=== PATIENT | female | born 1945 ===

== ENCOUNTER 2017-05-04 08:26 | Emergency (ER) | payer OTHER ==
[2017-05-04 08:26] VITALS: PULSE 80; BMI 20.2
[2017-05-04] MEDS: Albuterol-Ipratrop 3 mg / 0.5 (3 ml) UD IH SCH ×3 (09:24→09:52)
--- NOTE | 2017-05-04 09:36 | ED PDOC ---
Arrival/HPI - General Chief Complaint: Shortness Of Breath Time Seen by Provider: 05/04/17 09:02 Historian: Patient - History of Present Illness Narrative History of Present Illness (Text): 05/04/17 09:28 A 72 year old female, whose past medical history includes PA, Tuberculosis, anemia GI bleed, proximal A- Fib, hypertension COPD, diabetes, presents to the emergency department complaining of shortness of breath, cough, and wheezing s/ p an asthma attack 1-2 days ago. The patient notes that her symptoms have worsened since the time of the asthma attack. The patient's daughter, at bedside , notes that the patient was coughing with sputum. The patient notes that she has been using her nebulizer treatments for the past 4 days, every 4 hours. The patient denies fevers, chills, headache, dizziness, chest pain, dyspnea on exertion, abdominal pain, nausea, vomiting, diarrhea, back pain, neck pain, urinary/bowel changes, or any other complaint. PMD: Dr. Shantel Grover Time/Duration: Other (1-2 Days) Symptom Onset: Sudden Symptom Course: Unchanged Activities at Onset: Rest, Light Context: Home Past Medical History - Provider Review Nursing Documentation Reviewed: Yes - Infectious Disease Hx of Infectious Diseases: None - Cardiac Hx Cardiac Disorders: Yes Hx Hypertension: Yes - Pulmonary Hx Chronic Obstructive Pulmonary Disease (COPD): Yes - HEENT Hx HEENT Disorder: No - Endocrine/Metabolic Hx Diabetes Mellitus Type 1: Yes - Integumentary Hx Dermatological Disorder: No - Musculoskeletal/Rheumatological Hx Musculoskeletal Disorders: No Hx Falls: No - Genitourinary/Gynecological Hx Genitourinary Disorders: Yes Other/Comment: c/s x 1 - Psychiatric Hx Psychophysiologic Disorder: Yes Hx Anxiety: No Hx Bipolar Disorder: No Hx Depression: No Hx Emotional Abuse: No Hx Hallucinations: No Hx Panic Disorder: No Hx Post Traumatic Stress Disorder: No Hx Psychosis: No Hx Physical Abuse: No Hx Schizophrenia: No Hx Sexual Abuse: No Hx Substance Use: No - Surgical History Other/Comment: BILATERAL EYE SURGERY CATARACTS ,C/S X 1 - Anesthesia Hx Anesthesia Reactions: No Hx Malignant Hyperthermia: No Family/Social History - Physician Review Nursing Documentation Reviewed: Yes Family/Social History: No Known Family HX Smoking Status: Never Smoked Hx Alcohol Use: No Hx Substance Use: No Allergies/Home Meds Allergies/Adverse Reactions: Allergies aspirin Allergy (Verified 05/04/17 08:51) ANAPHYLAXIS Home Medications: Home Meds Medication Instructions Recorded Confirmed Albuterol HFA [Ventolin HFA 90 1 puff IH PRN PRN 06/06/15 06/06/15 mcg/actuation (8 g)] Budesonide/Formoterol Fumarate 10.2 gm IH BID 06/06/15 06/06/15 [Symbicort 160-4.5 Mcg Inhaler] Metformin HCl [Metformin HCl ER] 1 tab PO BID 06/06/15 06/06/15 Montelukast [Singulair] 10 mg PO DAILY 06/06/15 06/06/15 Tiotropium [Spiriva] 18 mcg IH DAILY 06/06/15 06/06/15 Review of Systems - Physician Review All systems were reviewed & negative as marked: Yes - Review of Systems Constitutional: absent: Fevers, Night Sweats Respiratory: SOB, Cough, Wheezing Cardiovascular: absent: Chest Pain, JOHNSON Gastrointestinal: absent: Abdominal Pain, Stool Changes, Diarrhea, Nausea, Vomiting Genitourinary Female: absent: Urine Output Changes Musculoskeletal: absent: Back Pain, Neck Pain Neurological: absent: Headache, Dizziness Physical Exam Vital Signs Reviewed: Yes Vital Signs Temp Pulse Resp BP Pulse Ox 05/04/17 12:53 98.2 F 82 18 122/61 100 05/04/17 09:25 17 99 05/04/17 08:49 98.8 F 79 17 127/84 97 Temperature: Afebrile Blood Pressure: Normal Pulse: Regular Respiratory Rate: Normal Appearance: Positive for: Well-Appearing, Non-Toxic, Comfortable Pain Distress: None Mental Status: Positive for: Alert and Oriented X 3 - Systems Exam Head: Present: Atraumatic, Normocephalic Pupils: Present: PERRL Extroacular Muscles: Present: EOMI Conjunctiva: Present: Normal Mouth: Present: Moist Mucous Membranes Neck: Present: Normal Range of Motion Respiratory/Chest: Present: Wheezes. No: Retracting Cardiovascular: Present: Regular Rate and Rhythm, Normal S1, S2. No: Murmurs Abdomen: Present: Normal Bowel Sounds. No: Tenderness, Distention, Peritoneal Signs Back: Present: Normal Inspection Upper Extremity: Present: Normal Inspection. No: Cyanosis, Edema Lower Extremity: Present: Normal Inspection. No: Edema, Swelling Neurological: Present: GCS=15, CN II-XII Intact, Speech Normal Skin: Present: Warm, Dry, Normal Color. No: Rashes Psychiatric: Present: Alert, Oriented x 3, Normal Insight, Normal Concentration Medical Decision Making ED Course and Treatment: 05/04/17 09:37 Impression: A 72 year old female presents to the emergency department complaining of shortness of breath, cough and wheezing. Differential Diagnosis included but are not limited to: Asthma exacerbation r/ o pneumonia Plan: -- EKG -- Chest X-ray -- Labs -- Duoneb and SOLU-Medrol -- Reassess and disposition Progress Notes: EKG: Ordered, reviewed, and independently interpreted the EKG. Rate : 74 BPM Rhythm : NSR Interpretation : Inferior lateral T- wave inversion. Comparison : No change from 06/11/15 05/04/17 12:35: Patient states that she is feeling much better. On re-evaluation , the patient still has wheezes. Will administer additional treatment. Chest X-ray read and interpreted by me shows right apical scarring. No change from previous Chest X-ray. 05/04/17 12:51: Patient reevaluated. Lungs are clear. No retractions. The patient is able to ambulate without feeling short of breath. The patient will be discharged home with primary care follow- up. - Lab Interpretations Lab Results: 05/04/17 09:20 05/04/17 09:20 Lab Results 05/04/17 09:20: Influenza Typ A,B (EIA) Negative for flu a/b 05/04/17 09:20: Sodium 132, Potassium 3.9, Chloride 94 L, Carbon Dioxide 26, Anion Gap 17, BUN 11, Creatinine 0.7, Est GFR ( Amer) > 60, Est GFR (Non- Af Amer) > 60, Random Glucose 172 H, Calcium 9.3 05/04/17 09:20: WBC 6.0, RBC 4.05, Hgb 11.2 L, Hct 33.6 L, MCV 83.0, MCH 27.7, MCHC 33.3, RDW 12.9, Plt Count 160, MPV 9.8, Gran % 54.0, Lymph % (Auto) 25.9, [place] % (Auto) 19.1 H, Eos % (Auto) 0.8 L, Baso % (Auto) 0.2, Gran # 3.26, Lymph # (Auto) 1.6, [place] # (Auto) 1.2 H, Eos # (Auto) 0.1, Baso # (Auto) 0.01 I have reviewed the lab results: Yes - RAD Interpretation Radiology Orders: 05/04/17 09:10 CHEST TWO VIEWS (PA/LAT) [RAD] Stat - EKG Interpretation Interpreted by ED Physician: Yes Type: 12 lead EKG - Medication Orders Current Medication Orders: Discontinued Medications Albuterol Sulfate (Albuterol 0.083% Inhal Frida (2.5 Mg/3 Ml) Ud) 2.5 mg INH STAT STA Stop: 05/04/17 11:07 Last Admin: 05/04/17 11:12 Dose: 2.5 mg Albuterol/Ipratropium (Duoneb 3 Mg/0.5 Mg (3 Ml) Ud) 3 ml IH Q15M ROCKY Stop: 05/04/17 09:46 Last Admin: 05/04/17 09:52 Dose: 3 ml Methylprednisolone (Solu-Medrol) 125 mg IVP STAT STA Stop: 05/04/17 09:11 Last Admin: 05/04/17 09:24 Dose: 125 mg IVP Administration Document 05/04/17 09:24 EW (Rec: 05/04/17 09:24 EWO [id number]) Charges for Administration # of IVP Administrations 1 - Scribe Statement The provider has reviewed the documentation as recorded by the Matibe Mckenna Giordano Provider Scribe Attestation: All medical record entries made by the Scribe were at my direction and personally dictated by me. I have reviewed the chart and agree that the record accurately reflects my personal performance of the history, physical exam, medical decision making, and the department course for this patient. I have also personally directed, reviewed, and agree with the discharge instructions and disposition. Disposition/Present on Arrival - Present on Arrival Any Indicators Present on Arrival: No History of DVT/PE: No History of Uncontrolled Diabetes: No Urinary Catheter: No History of Decub. Ulcer: No History Surgical Site Infection Following: None - Disposition Have Diagnosis and Disposition been Completed?: Yes Diagnosis: Asthma Disposition: HOME/ ROUTINE Disposition Time: 13:09 Patient Plan: Discharge Condition: IMPROVED Discharge Instructions (ExitCare): Asthma (ED) Additional Instructions: Ms Holguin, thank you for letting us take care of you today. Your provider was Dr. Barragan. You were treated for Asthma Exacerbation. The emergency medical care you received today was directed at your acute symptoms. If you were prescribed any medication, please fill it and take as directed. It may take several days for your symptoms to resolve. Return to the Emergency Department if your symptoms worsen, do not improve, or if you have any other problems. Please contact your doctor or call one of the physicians/clinics you have been referred to that are listed on the Patient Visit Information form that is included in your discharge packet. Bring any paperwork you were given at discharge with you along with any medications you are taking to your follow up visit. Our treatment cannot replace ongoing medical care by a primary care provider (PCP) outside of the emergency department. Thank you for allowing the [facility] team to be part of your care today. If you had an X-Ray or CT scan: A Radiologist will review the ED reading if any change in treatment is needed we will contact you. If you had a blood, urine, or wound culture: It will take several days for the results, if any change in treatment is needed we will contact you. If you had an STI test: It will take 48 hours for the results. Please call after 1 week if you have not heard back. Prescriptions: Albuterol 0.083% [Albuterol 0.083% Inhal Frida (2.5 mg/3 ml) UD] 2.5 mg IH PRN PRN #1 neb PRN Reason: Shortness Of Breath Albuterol HFA [Ventolin HFA 90 mcg/actuation (8 g)] 2 puff IH Q4 #1 puff predniSONE [predniSONE Tab] 40 mg PO DAILY #8 tab Referrals: [facility] Carolyn Req, [Non-Staff] - Follow up with primary Forms: [employer] (Uzbek)
[2017-05-04 09:53] LABS: BASO # 0.01 K/mm3 (0.0-2.0); BASO % 0.2 % (0.0-3.0); EOS # 0.1 (0.0-0.7); EOS % 0.8 % (1.5-5.0); GRAN # 3.26 (1.4-6.5); HEMOGLOBIN 11.2 g/dL (12.0-16.0); LYMPH # 1.6 (1.2-3.4); LYMPH % 25.9 % (22.0-35.0); MEAN CORPUSCULAR HEMOGLOBIN 27.7 pg (25.0-35.0); MEAN CORPUSCULAR HGB CONC 33.3 g/dl (31.0-37.0); MEAN PLATELET VOLUME 9.8 fl (7.0-11.0); MONO # 1.2 (0.1-0.6); MONO % 19.1 % (1.0-6.0); RBC 4.05 10^6/uL (3.5-6.1); RED CELL DISTRIBUTION WIDTH 12.9 % (11.5-14.5)
[2017-05-04 09:59] LABS: BLOOD UREA NITROGEN 11 mg/dL (7-21); CALCIUM 9.3 mg/dL (8.4-10.5); GFR AFRICAN-AMERICAN > 60; GFR NON-AFRICAN AMERICAN > 60
[2017-05-04] MEDS ORDERED: Albuterol 0.083% Inhal Sol (2.5 mg/3 mL) UD INH STA (11:06)
--- NOTE | 2017-05-04 12:09 | RAD ---
HISTORY: Cough, pneumonia suspected COMPARISON: 06/11/2015 TECHNIQUE: Chest PA and lateral FINDINGS: LUNGS: Fibronodular changes, scarring in the apices. Hilar retraction, findings likely reflective of granulomatous disease. PLEURA: No significant pleural effusion identified. No pneumothorax apparent. CARDIOVASCULAR: No radiographic findings to suggest acute or significant cardiovascular disease. OSSEOUS STRUCTURES: No significant abnormalities. VISUALIZED UPPER ABDOMEN: Normal. OTHER FINDINGS: None. IMPRESSION: No active disease. No significant interval change compared to the prior examination(s). Concordant results with the preliminary interpretation rendered by the emergency department physician procedure.
[2017-05-04 13:00] VITALS: BP 122/61; PULSE 82; RESP 18; TEMP 98.2; O2SAT 100
--- NOTE | 2017-05-04 21:04 | CARD ---
APPROVED REPORT EKG Measurement Heart [id number] <Conclusion> Normal sinus rhythm Cannot rule out Inferior infarct, age undetermined Abnormal ECG
== END 2017-05-04 13:09 | disposition home or self-care (01) ==
LOC: ED 08:26
DX: J45.909 Unspecified asthma, uncomplicated (principal); I10 Essential (primary) hypertension
CPT/HCPCS: 71046; 80048; 85025; 87804; 93005; 96374; 99284; J2930

== ENCOUNTER 2017-05-08 09:57 | Inpatient (IN) | payer MEDICAID, OTHER ==
--- NOTE | 2017-05-08 10:33 | ED PDOC ---
Arrival/HPI - General Time Seen by Provider: 05/08/17 10:15 Historian: Patient, Family - History of Present Illness Narrative History of Present Illness (Text): 05/08/17 10:25 Blanquita Holguin is a 72 year old female, whose past medical history includes hypertension, COPD, diabetes, and cardiac stents, who presents to the emergency department accompanied by daughter, with complaints of shortness of breath since this morning. Patient reports she was last seen here on 05/04/17 for shortness of breath but has not improved. Daughter reports patient seems more fatigue than usual. Patient denies chest pain, headache, nausea, vomiting, cough , or other complaints. Time/Duration: 4-6 hours Symptom Onset: Sudden Symptom Course: Unchanged Context: Home Past Medical History - Provider Review Nursing Documentation Reviewed: Yes - Infectious Disease Hx of Infectious Diseases: None - Cardiac Hx Cardiac Disorders: Yes Hx Hypertension: Yes - Pulmonary Hx Chronic Obstructive Pulmonary Disease (COPD): Yes - HEENT Hx HEENT Disorder: No - Endocrine/Metabolic Hx Diabetes Mellitus Type 1: Yes - Integumentary Hx Dermatological Disorder: No - Musculoskeletal/Rheumatological Hx Musculoskeletal Disorders: No Hx Falls: No - Genitourinary/Gynecological Hx Genitourinary Disorders: Yes Other/Comment: c/s x 1 - Psychiatric Hx Psychophysiologic Disorder: Yes Hx Anxiety: No Hx Bipolar Disorder: No Hx Depression: No Hx Emotional Abuse: No Hx Hallucinations: No Hx Panic Disorder: No Hx Post Traumatic Stress Disorder: No Hx Psychosis: No Hx Physical Abuse: No Hx Schizophrenia: No Hx Sexual Abuse: No Hx Substance Use: No - Surgical History Other/Comment: BILATERAL EYE SURGERY CATARACTS ,C/S X 1 - Anesthesia Hx Anesthesia Reactions: No Hx Malignant Hyperthermia: No Family/Social History - Physician Review Nursing Documentation Reviewed: Yes Family/Social History: Unknown Family HX Smoking Status: Never Smoked Hx Alcohol Use: No Hx Substance Use: No Allergies/Home Meds Allergies/Adverse Reactions: Allergies aspirin Allergy (Verified 05/08/17 10:35) ANAPHYLAXIS Home Medications: Home Meds Medication Instructions Recorded Confirmed Unobtainable 05/08/17 05/08/17 Review of Systems - Review of Systems Constitutional: Fatigue. absent: Fevers Respiratory: SOB Cardiovascular: JOHNSON. absent: Chest Pain, Edema, Calf Pain Gastrointestinal: absent: Abdominal Pain, Diarrhea Genitourinary Female: absent: Dysuria, Frequency Musculoskeletal: absent: Back Pain Skin: absent: Rash Neurological: absent: Headache Endocrine: absent: Diaphoresis Hemo/Lymphatic: absent: Adenopathy Physical Exam - Physical Exam Narrative Physical Exam (Text): 05/08/17 Head: Atraumatic. Normocephalic. Eyes: PERRL. EOMI. Conjunctivae are not pale. ENT: Mucous membranes are moist and intact. Oropharynx is clear and symmetric. Neck: Supple. Full ROM. No JVD. No lymphadenopathy. Cardiovascular: Regular rate. Regular rhythm. No murmurs, rubs, or gallops. Distal pulses are 2+ and symmetric. Pulmonary/Chest: (+) tachypneic with bilateral wheezing, no accessory muscle usage Abdominal: Soft and non-distended. There is no tenderness. No rebound, guarding, or rigidity. No organomegaly. Good bowel sounds. Back: No CVA tenderness. Extremities: No edema. No cyanosis. No clubbing. Full range of motion in all extremities. No calf tenderness. Skin: Skin is warm and dry. No petechiae. No purpura. Neurological: Alert, awake, and oriented to person, place, time, and situation. Normal speech. Motor and sensory exam intact. Psychiatric: Good eye contact. Normal interaction, affect, and behavior. 05/08/17 16:13 Vital Signs Reviewed: Yes Vital Signs Temp Pulse Resp BP Pulse Ox 05/08/17 14:09 80 18 135/62 96 05/08/17 14:06 18 95 05/08/17 12:00 85 18 126/60 95 05/08/17 10:35 99.2 F 85 20 147/76 95 05/08/17 10:28 99.2 F 92 H 18 153/71 H 95 Temperature: Afebrile Respiratory Rate: Tachypneic Appearance: Positive for: Well-Appearing, Non-Toxic, Comfortable Pain Distress: None Mental Status: Positive for: Alert and Oriented X 3 Medical Decision Making ED Course and Treatment: 05/08/17 Impression: 72 year old who is tachypneic with bilateral wheezing complaining of shortness of breath since this morning. Differential Diagnosis included but are not limited to: COPD vs. CHF vs. PNA vs. Influenza vs. anemia Plan: -- EKG -- Chest X-ray -- Labs -- Reassess and disposition Prior Visits: Notes and results from previous visits were reviewed. Patient was last seen in the emergency department on 05/04/17 Progress Notes: Initial saturations are 96% on room air. She is mildy tachypneic with bilateral wheezing. No chest pain or leg pain or swelling. She was recently evaluated 05/04/17 and placed on steroids. She has prior cardiac history as per family, although initial EKG and troponin unremarkable. 05/08/17 11:00 Chest X-ray: Creator : Tyree Duarte MD COMPARISON:Chest radiographs 05/04/2017. FINDINGS: LUNGS:Trace patchy density is seen at the right infrahilar space suspicious for interval infiltrate or atelectasis. No interval left-sided infiltrate appreciable. Bilateral pulmonary volume loss from biapical gross pulmonary fibrotic changes again evident. PLEURA:Gross right apical pleural thickening in evident, minimal at the left. CARDIOVASCULAR:Normal. OSSEOUS STRUCTURES:No significant abnormalities. VISUALIZED UPPER ABDOMEN:Normal. OTHER FINDINGS:None. IMPRESSION: Trace right infrahilar patchy atelectasis or infiltrate noted in the interval with none on the left. Exam otherwise stable including gross post granulomatous changes in the bilateral apices. After three nebulizers patient reassessed and found to have persistent wheezing with minimal improvement. As lactate elevated with elevated WBC, will call code sepsis as patient with cxr consistent with possible pneumonia. Currently not tachycardic or hypotensive. 05/08/17 14:00 Code Sepsis called. IV antibitoics initiated for pulmonary infection, abnormal cxr. Case d/w hospitalist accepts admission to telemetry as multiple nebulizers required. - Lab Interpretations Lab Results: 05/08/17 10:50 05/08/17 10:50 Lab Results 05/08/17 14:00: Phosphorus 2.7, Magnesium 1.7 05/08/17 10:50: Sodium 136, Chloride 94 L, Potassium 4.2, Carbon Dioxide 30, Anion Gap 16, BUN 19, Creatinine 0.7, Est GFR ( Amer) > 60, Est GFR (Non- Af Amer) > 60, Random Glucose 220 H, Calcium 9.4, Total Bilirubin 0.4, AST 30, ALT 28, Alkaline Phosphatase 65, Lactate Dehydrogenase 408, Total Creatine Kinase 27 L, Troponin I 0.01 D, NT-Pro-B Natriuret Pep 967 H, Total Protein 7.2 , Albumin 3.8, Globulin 3.4, Albumin/Globulin Ratio 1.1 05/08/17 10:50: PT 11.5, INR 1.00, APTT 28.7 05/08/17 10:50: Influenza Typ A,B (EIA) Negative for flu a/b 05/08/17 10:50: WBC 17.8 H D, RBC 4.35, Hgb 12.0, Hct 36.2, MCV 83.2, MCH 27.6, MCHC 33.1, RDW 12.8, Plt Count 178, MPV 9.8, Gran % 85.8 H, Lymph % (Auto) 3.9 L , [place] % (Auto) 10.2 H, Eos % (Auto) 0.0 L, Baso % (Auto) 0.1, Gran # 15.26 H, Lymph # (Auto) 0.7 L, [place] # (Auto) 1.8 H, Eos # (Auto) 0.0, Baso # (Auto) 0.01 , Neutrophils % (Manual) 92 H, Band Neutrophils % 1, Lymphocytes % (Manual) 4 L , Monocytes % (Manual) 3 05/08/17 10:45: pCO2 42, pO2 64.0 L, HCO3 31.3 H, ABG pH 7.48 H, ABG Total CO2 32.6 H, ABG O2 Saturation 95.6, ABG Base Excess 7.0 H, ABG Potassium 4.0, Sodium 134.0, Chloride 100.0, Glucose 239 H, Lactate 2.8 H, FiO2 21.0, Arterial Blood Potassium 4.0 I have reviewed the lab results: Yes - RAD Interpretation Radiology Orders: 05/08/17 10:36 CHEST PORTABLE [RAD] Stat Dba Manager: Radiologist - EKG Interpretation EKG Interpretation (Text): EKG at 10:08 normal sinus rhythm with first degree av block, t wave abnormality Interpreted by ED Physician: Yes Type: 12 lead EKG - Medication Orders Current Medication Orders: Albuterol/Ipratropium (Duoneb 3 Mg/0.5 Mg (3 Ml) Ud) 3 ml IH [id number] ROCKY Last Admin: 05/08/17 16:00 Dose: Albuterol/Ipratropium (Duoneb 3 Mg/0.5 Mg (3 Ml) Ud) 3 ml IH Q2H PRN PRN Reason: Shortness of Breath Arformoterol Tartrate (Brovana) 15 mcg IH [id number] [facility] Atorvastatin Calcium (Lipitor) 20 mg PO DIN [facility] Budesonide (Pulmicort Respules) 0.5 mg IH [id number] [facility] Clopidogrel Bisulfate (Plavix) 75 mg PO DAILY [facility] Famotidine (Pepcid) 20 mg PO 1000,2200 [facility] Ceftriaxone Sodium (Rocephin 1 Gram Ivpb) 1 gm in 100 mls @ 100 mls/hr IVPB DAILY ROCKY PRN Reason: Protocol Azithromycin (Zithromax 500mg In Ns) 500 mg in 250 mls @ 167 mls/hr IVPB DAILY ROCKY PRN Reason: Protocol Insulin Human Regular (Humulin R Med) 0 units SC ACHS ROCKY PRN Reason: Protocol Lisinopril (Zestril) 2.5 mg PO DAILY [facility] Methylprednisolone (Solu-Medrol) 40 mg IVP Q8H [facility] Last Admin: 05/08/17 15:57 Dose: Discontinued Medications Albuterol/Ipratropium (Duoneb 3 Mg/0.5 Mg (3 Ml) Ud) 3 ml IH Q15M ROCKY Stop: 05/08/17 11:16 Last Admin: 05/08/17 12:23 Dose: 3 ml Albuterol/Ipratropium (Duoneb 3 Mg/0.5 Mg (3 Ml) Ud) 3 ml IH STAT STA Stop: 05/08/17 15:54 Last Admin: 05/08/17 15:59 Dose: 3 ml Ceftriaxone Sodium (Rocephin 1 Gram Ivpb) 1 gm in 100 mls @ 200 mls/hr IVPB ONCE STA PRN Reason: Protocol Stop: 05/08/17 12:26 Last Admin: 05/08/17 12:23 Dose: 200 mls/hr eMAR Start Stop Document 05/08/17 12:23 [facility] (Rec: 05/08/17 12:23 [facility] [id number]) Intravenous Solution Start Date 05/08/17 Start Time 12:23 End Date 05/08/17 End time 13:00 Total Infusion Time 37 Azithromycin (Zithromax 500mg In Ns) 500 mg in 250 mls @ 166.667 mls/hr IVPB STAT STA PRN Reason: Protocol Stop: 05/08/17 13:26 Last Admin: 05/08/17 14:17 Dose: 166.667 mls/hr eMAR Start Stop Document 05/08/17 14:17 [facility] (Rec: 05/08/17 14:18 [facility] [id number]) Intravenous Solution Start Date 05/08/17 Start Time 14:17 End Date 05/08/17 End time 15:50 Total Infusion Time 93 Lactated Ringer's 1,360 ml/ IV (SUPPLIES) 1,360 mls @ 2,721.54 mls/hr IV ONCE ONE PRN Reason: 60 ML/KG/HR Stop: 05/08/17 14:07 Last Admin: 05/08/17 14:18 Dose: 2,721.54 mls/hr eMAR Start Stop Document 05/08/17 14:18 [facility] (Rec: 05/08/17 14:18 [facility] [id number]) Intravenous Solution Start Date 05/08/17 Start Time 14:18 End Date 05/08/17 End time 14:50 Total Infusion Time 32 Methylprednisolone (Solu-Medrol) 125 mg IVP STAT STA Stop: 05/08/17 10:38 Last Admin: 05/08/17 11:14 Dose: 125 mg IVP Administration Document 05/08/17 11:14 [facility] (Rec: 05/08/17 11:14 [facility] [id number]) Charges for Administration # of IVP Administrations 1 - Scribe Statement The provider has reviewed the documentation as recorded by the Shirley Franklin Provider Scribe Attestation: All medical record entries made by the Scribmiles were at my direction and personally dictated by me. I have reviewed the chart and agree that the record accurately reflects my personal performance of the history, physical exam, medical decision making, and the department course for this patient. I have also personally directed, reviewed, and agree with the discharge instructions and disposition. Disposition/Present on Arrival - Present on Arrival Any Indicators Present on Arrival: No History of DVT/PE: No History of Uncontrolled Diabetes: No Urinary Catheter: No History Surgical Site Infection Following: None - Disposition Have Diagnosis and Disposition been Completed?: Yes Diagnosis: Asthma exacerbation, Pneumonia, Sepsis Disposition: HOSPITALIZED Disposition Time: 12:15 Patient Plan: Admission, Telemetry Condition: SERIOUS
--- NOTE | 2017-05-08 10:56 | RAD ---
HISTORY: sob COMPARISON: Chest radiographs 05/04/2017. FINDINGS: LUNGS: Trace patchy density is seen at the right infrahilar space suspicious for interval infiltrate or atelectasis. No interval left-sided infiltrate appreciable. Bilateral pulmonary volume loss from biapical gross pulmonary fibrotic changes again evident. PLEURA: Gross right apical pleural thickening in evident, minimal at the left. CARDIOVASCULAR: Normal. OSSEOUS STRUCTURES: No significant abnormalities. VISUALIZED UPPER ABDOMEN: Normal. OTHER FINDINGS: None. IMPRESSION: Trace right infrahilar patchy atelectasis or infiltrate noted in the interval with none on the left. Exam otherwise stable including gross post granulomatous changes in the bilateral apices.
[2017-05-08 11:01] LABS: ARTERIAL BLOOD GAS HCO3 31.3 mmol/L (21-28); ARTERIAL BLOOD GAS O2 SAT 95.6 % (95-98); ARTERIAL BLOOD GAS PCO2 42 mm/Hg (35-45); ARTERIAL BLOOD GAS PH 7.48 (7.35-7.45); ARTERIAL BLOOD GAS TCO2 32.6 mmol.L (22-28)
[2017-05-08] MEDS: Albuterol-Ipratrop 3 mg / 0.5 (3 ml) UD IH SCH ×5 (11:13→20:45)
[2017-05-08 11:26] LABS: BASO # 0.01 K/mm3 (0.0-2.0); BASO % 0.1 % (0.0-3.0); GRAN # 15.26 (1.4-6.5); GRAN % 85.8 % (50.0-68.0); LYMPH # 0.7 (1.2-3.4); LYMPH % 3.9 % (22.0-35.0); MEAN CELL VOLUME 83.2 fl (80.0-105.0); MEAN CORPUSCULAR HEMOGLOBIN 27.6 pg (25.0-35.0); MEAN CORPUSCULAR HGB CONC 33.1 g/dl (31.0-37.0); MEAN PLATELET VOLUME 9.8 fl (7.0-11.0); MONO # 1.8 (0.1-0.6); MONO % 10.2 % (1.0-6.0); PLATELET COUNT 178 10^3/uL (120.0-450.0); RBC 4.35 10^6/uL (3.5-6.1); RED CELL DISTRIBUTION WIDTH 12.8 % (11.5-14.5); WHITE BLOOD COUNT 17.8 10^3/ul (4.5-11.0)
[2017-05-08 11:32] LABS: PARTIAL THROMBOPLASTIN TIME 28.7 Seconds (25.1-36.5); PROTHROMBIN TIME 11.5 SECONDS (9.4-12.5)
[2017-05-08 11:43] LABS: B-TYPE NATRIURETIC PEPTIDE 967 pg/mL (0-450); TROPONIN I 0.01 ng/mL
[2017-05-08 11:49] LABS: BAND 1 % (0-2); LYMPHOCYTE 4 % (22.0-35.0); MONOCYTE 3 % (1.0-6.0); NEUTROPHIL 92 % (50.0-70.0)
[2017-05-08 11:56] LABS: ALB/GLOB RATIO 1.1 (1.1-1.8); ALBUMIN 3.8 g/dL (3.0-4.8); ALT/SGPT 28 U/L (7-56); AST/SGOT 30 U/L (14-36); BLOOD UREA NITROGEN 19 mg/dL (7-21); CALCIUM 9.4 mg/dL (8.4-10.5); GFR AFRICAN-AMERICAN > 60; GFR NON-AFRICAN AMERICAN > 60
[2017-05-08] MEDS ORDERED: cefTRIAXone 1 gm 1 GM/100 ML BAG IVPB STA (11:57)
[2017-05-08] MEDS ORDERED: Azithromycin 500MG/NS 250ml 500 MG/250 ML BAG IVPB STA (11:57)
--- NOTE | 2017-05-08 14:29 | CP.PCM.HP ---
<Mary Jackson - Last Filed: 05/08/17 15:25> History of Present Illness - History of Present Illness History of Present Illness: Mary Jackson, PGY1, Medicine H&P for Dr Blair: CC: SOB 72 year old female with hx of COPD, HTN, TB, CAD x 2 stents (mid LAD and RCA - 2015, [facility] [place]), paroxysmal afib, DM2, presents to ED for shortness of breath for past few days. Pt states that she started feeling sob this AM while she was walking back and forth to the bathroom. States that she has been using her duonebs quite a lot at home, with minimal improvement in her symptoms. Pt recently came to ED on Friday for similar symptoms, received duonebs in ED, with improvement of symptoms, was discharged home on steroid taper. She is on her last dose, with worsening symptoms. Reports mild productive cough with white sputum that started this morning. Denies fever, chills, nausea, vomiting, palpitations, sore throat, chest/nasal congestion, cp, dizziness, syncope, abdominal pain, diarrhea/constipation, leg swelling, orthopnea. Pt had an AL 2 years ago at [facility] with 2 stents placed, pt reports that she has not followed up with [facility] since then. Last echo 05/2015 post AL showed EF 34%. biatrial enlargement, septal wall motion abnormalities. In ED, pt afebrile with stable vitals. Leukocytosis 17.8 with 1% bandemia, lactate 2.8, bnp mildly elevated 967 (no prior baseline). EKG showed HR 91, SR with 1st degree AV block. Pt actively wheezing b/l on physical exam. Given LR 30 ml/kg bolus in ED, with azithro/rocephin, methyprednisolon 125 mg IV. Currently, pt is resting comfortably in bed, reports mild improvement in her sob. 12 point ROS obtained and neg, except as noted per HPI. PMD: Dayron All: ASA PMHx: HTN, TB, IDDM, hyperlipidemia, COPD, "cardiac arythmia", CAD x 2 stents ( mid lAD mid RCA- 2016), paroxysmal afib (non on AC due to prior anemia) PSHx: none Fam Hx: CAD Social Hx: denies tobacco, alcohol, illicit drug use. lives with daughter. ambulatory at home. Home Meds: Pt's daughter at beside does not have dosages of meds, states that she will obtain from home. Please reconcile meds thereafter. Present on Admission - Present on Admission Any Indicators Present on Admission: No History of DVT/PE: No History of Uncontrolled Diabetes: No Urinary Catheter: No Decubitus Ulcer Present: No Review of Systems - Review of Systems All systems: reviewed and no additional remarkable complaints except Review of Systems: as per hpi Past Patient History - Infectious Disease Hx of Infectious Diseases: None - Past Social History Smoking Status: Never Smoked - CARDIAC Hx Cardiac Disorders: Yes Hx Hypertension: Yes - PULMONARY Hx Chronic Obstructive Pulmonary Disease (COPD): Yes - HEENT Hx HEENT Problems: No - ENDOCRINE/METABOLIC Hx Diabetes Mellitus Type 1: Yes - INTEGUMENTARY Hx Dermatological Problems: No - MUSCULOSKELETAL/RHEUMATOLOGICAL Hx Musculoskeletal Disorders: No Hx Falls: No - GENITOURINARY/GYNECOLOGICAL Hx Genitourinary Disorders: Yes Other/Comment: c/s x 1 - PSYCHIATRIC Hx Psychophysiologic Disorder: Yes Hx Anxiety: No Hx Bipolar Disorder: No Hx Depression: No Hx Emotional Abuse: No Hx Hallucinations: No Hx Panic Symptoms: No Hx Post Traumatic Stress Disorder: No Hx Psychosis: No Hx Physical Abuse: No Hx Schizophrenia: No Hx Sexual Abuse: No Hx Substance Use: No - SURGICAL HISTORY Other/Comment: BILATERAL EYE SURGERY CATARACTS ,C/S X 1 - ANESTHESIA Hx Anesthesia Reactions: No Hx Malignant Hyperthermia: No Meds Allergies/Adverse Reactions: Allergies Allergy/AdvReac Type Severity Reaction Status Date / Time aspirin Allergy ANAPHYLAXIS Verified 05/08/17 10:35 Physical Exam - Constitutional Appears: Non-toxic, No Acute Distress, Older Than Stated Age - Head Exam Head Exam: ATRAUMATIC, NORMOCEPHALIC - Eye Exam Eye Exam: EOMI, PERRL. absent: Conjunctival injection, Periorbital swelling, Scleral icterus Pupil Exam: NORMAL ACCOMODATION, PERRL. absent: Fixed, Irregular, Unequal - ENT Exam ENT Exam: Mucous Membranes Moist - Neck Exam Neck exam: Positive for: Full Rom - Respiratory Exam Respiratory Exam: Wheezes (diffuse, bilaterally throughout lung acevedo). absent : Accessory Muscle Use, Chest Wall Tenderness, Decreased Breath Sounds, Rhonchi , Respiratory Distress, Stridor - Cardiovascular Exam Cardiovascular Exam: RRR, +S1, +S2. absent: Systolic Murmur - GI/Abdominal Exam GI & Abdominal Exam: Normal Bowel Sounds, Soft. absent: Distended, Organomegaly , Rebound, Rigid, Tenderness - Extremities Exam Extremities exam: Positive for: normal inspection. Negative for: calf tenderness, pedal edema - Back Exam Back exam: NORMAL INSPECTION - Neurological Exam Neurological exam: Alert, Oriented x3 - Psychiatric Exam Psychiatric exam: Normal Affect, Normal Mood - Skin Skin Exam: Dry, Normal Color, Warm Results - Vital Signs Recent Vital Signs: Last Vital Signs Temp 99.2 F 05/08/17 10:35 Pulse 80 05/08/17 14:09 Resp 18 05/08/17 14:09 BP 135/62 05/08/17 14:09 Pulse Ox 96 05/08/17 14:09 - Labs Result Diagrams: 05/08/17 10:50 05/08/17 10:50 Labs: Laboratory Results - last 24 hr 05/08/17 05/08/17 05/08/17 10:45 10:50 10:50 WBC 17.8 H D RBC 4.35 Hgb 12.0 Hct 36.2 MCV 83.2 MCH 27.6 MCHC 33.1 RDW 12.8 Plt Count 178 MPV 9.8 Gran % 85.8 H Lymph % (Auto) 3.9 L [place] % (Auto) 10.2 H Eos % (Auto) 0.0 L Baso % (Auto) 0.1 Gran # 15.26 H Lymph # (Auto) 0.7 L [place] # (Auto) 1.8 H Eos # (Auto) 0.0 Baso # (Auto) 0.01 Neutrophils % (Manual) 92 H Band Neutrophils % 1 Lymphocytes % (Manual) 4 L Monocytes % (Manual) 3 PT INR APTT pCO2 42 pO2 64.0 L HCO3 31.3 H ABG pH 7.48 H ABG Total CO2 32.6 H ABG O2 Saturation 95.6 ABG Base Excess 7.0 H ABG Potassium 4.0 Sodium 134.0 Chloride 100.0 Glucose 239 H Lactate 2.8 H FiO2 21.0 Potassium Carbon Dioxide Anion Gap BUN Creatinine Est GFR ( Amer) Est GFR (Non-Af Amer) Random Glucose Calcium Total Bilirubin AST ALT Alkaline Phosphatase Lactate Dehydrogenase Total Creatine Kinase Troponin I NT-Pro-B Natriuret Pep Total Protein Albumin Globulin Albumin/Globulin Ratio Arterial Blood Potassium 4.0 Influenza Typ A,B (EIA) Negative for flu a/b 05/08/17 05/08/17 10:50 10:50 WBC RBC Hgb Hct MCV MCH MCHC RDW Plt Count MPV Gran % Lymph % (Auto) [place] % (Auto) Eos % (Auto) Baso % (Auto) Gran # Lymph # (Auto) [place] # (Auto) Eos # (Auto) Baso # (Auto) Neutrophils % (Manual) Band Neutrophils % Lymphocytes % (Manual) Monocytes % (Manual) PT 11.5 INR 1.00 APTT 28.7 pCO2 pO2 HCO3 ABG pH ABG Total CO2 ABG O2 Saturation ABG Base Excess ABG Potassium Sodium 136 Chloride 94 L Glucose Lactate FiO2 Potassium 4.2 Carbon Dioxide 30 Anion Gap 16 BUN 19 Creatinine 0.7 Est GFR ( Amer) > 60 Est GFR (Non-Af Amer) > 60 Random Glucose 220 H Calcium 9.4 Total Bilirubin 0.4 AST 30 ALT 28 Alkaline Phosphatase 65 Lactate Dehydrogenase 408 Total Creatine Kinase 27 L Troponin I 0.01 D NT-Pro-B Natriuret Pep 967 H Total Protein 7.2 Albumin 3.8 Globulin 3.4 Albumin/Globulin Ratio 1.1 Arterial Blood Potassium Influenza Typ A,B (EIA) Assessment & Plan - Assessment and Plan (Free Text) Assessment: 72 year old female with PMH COPD, HTN, TB, CAD x 2 stents (mid LAD and RCA - 2016), paroxysmal afib, DM2, presents for sob for past few days: SOB: 2/2 likely COPD exacerbation vs CAP vs CHF vs GERD vs PE (less likely) - Started on Solumedrol 40 IV q8, duonebs q4 woody and q2 prn - C/w home asmanex, ellipta - O2 prn NC - CXR showed right infrahilar patchy atelectasis vs infiltrate. Gross granulomatous changes in bilateral apices - Given Azithro and rocephin in ED. Will c/w abx - obtain procal. - hold home beta tata in setting of bronchospasm - Cont to monitor Leukocytosis: - steroid induced vs CAP vs other infectious etiology - f/u procal - CXR showed right infrahilar patchy atelectasis vs infiltrate. Gross granulomatous changes in bilateral apices - f/u UA, urine culture, blood culture - cont to trend - daily cbc HX of CAD/HTN: - allergic to aspirin - Obtain dosages of home plavix, lisinopril from dosages. Currently started on plavix 75 daily and low dose lisinopril. Will readjust once confirmed dosages. - currently BP controlled - will hold carvedilol in setting of bronchospasm Hx of DM: - hold home oral antihypoglycemics - ISS - Cont to monitor PPX: Pecid, SCds Discussed with Dr Blair. - Date & Time Date: 05/08/17 Time: 15:55 <Hank Blair - Last Filed: 05/08/17 17:52> Results - Vital Signs Recent Vital Signs: Last Vital Signs Temp 99.2 F 05/08/17 10:35 Pulse 78 05/08/17 17:11 Resp 18 05/08/17 17:11 BP 139/71 05/08/17 17:11 Pulse Ox 96 05/08/17 17:11 - Labs Result Diagrams: 05/08/17 10:50 05/08/17 10:50 Labs: Laboratory Results - last 24 hr 05/08/17 05/08/17 05/08/17 15:23 16:10 16:57 pO2 81 H VBG pH 7.45 H VBG pCO2 44.0 VBG HCO3 30.6 H VBG Total CO2 32.0 H VBG O2 Sat (Calc) 98.3 H VBG Base Excess 5.8 H VBG Potassium 4.3 Sodium 133.0 Chloride 98.0 Glucose 311 H Lactate 2.2 H FiO2 21.0 POC Glucose (mg/dL) 266 H Venous Blood Potassium 4.3 Urine Color Light yellow Urine Appearance Clear Urine pH 6.0 Ur Specific [place] 1.015 Urine Protein Negative Urine Glucose (UA) 500 H Urine Ketones Negative Urine Blood Negative Urine Nitrate Negative Urine Bilirubin Negative Urine Urobilinogen 0.2 Ur Leukocyte Esterase Negative Attending/Attestation - Attestation I have personally seen and examined this patient.: Yes I have fully participated in the care of the patient.: Yes I have reviewed all pertinent clinical information: Yes Notes (Text): 05/08/17 17:48 72 year old female with past medical history of COPD, hypertension, CAD s/p stents, and diabetes who presents with shortness of breath secondary to asthma/ COPD exacerbation and possible right infrahilar infiltrate/pneumonia on CXR. Continue with iv steroids, iv antibiotics and duonebs. Procalcitonin level is ordered. Leukocytosis noted; possibly secondary to above vs recent steroids therapy. Will continue to monitor. Continue with home medications for CAD/hypertension except BB for now. PBNP is mildly elevated; will obtain echocardiogram. Family is at bedside and questions were answered. Hank Blair MD Hospitalist.
[2017-05-08] MEDS ORDERED: Albuterol-Ipratrop 3 mg / 0.5 (3 ml) UD IH PRN (15:20)
[2017-05-08 15:23] LABS: MAGNESIUM 1.7 mg/dL (1.7-2.2)
[2017-05-08 15:27] LABS: VENOUS BLOOD GAS BASE EXCESS 5.8 mmol/L (0.0-2.0); VENOUS BLOOD GAS PO2 81 mm/Hg (30-55); VENOUS BLOOD PH 7.45 (7.32-7.43)
[2017-05-08] MEDS ORDERED: Albuterol-Ipratrop 3 mg / 0.5 (3 ml) UD IH STA (15:53)
[2017-05-08] MEDS: MethylPREDNISolone 40 mg Vial IVP SCH (15:57)
[2017-05-08 16:29] LABS: URINE BILIRUBIN NEGATIVE (NEGATIVE); URINE BLOOD NEGATIVE (NEGATIVE); URINE GLUCOSE (UA) 500 mg/dL (NEGATIVE); URINE LEUKOCYTE ESTERASE NEGATIVE Leu/uL (NEGATIVE); URINE NITRATE NEGATIVE (NEGATIVE); URINE PROTEIN NEGATIVE mg/dL (<30 mg/dL); URINE UROBILINOGEN 0.2 E.U./dL (<1 E.U./dL)
[2017-05-08 16:36] LABS: URINE APPEARANCE CLEAR (CLEAR); URINE COLOR LIGHT YELLOW (YELLOW)
--- NOTE | 2017-05-08 17:02 | PCM.SEPTIC ---
<Mary Jackson - Last Filed: 05/08/17 17:00> Sepsis Progress Note - Reassessment Type Date of Evaluation: 05/08/17 Time of Evaluation: 17:00 Reassessment Type: Non-invasive reassessment - Non Invasive Reassessment Were the most recent vital sign reviewed: Yes Vital Sign (Latest): Temp Pulse Resp BP Pulse Ox 99.2 F 82 18 156/84 H 96 05/08/17 10:35 05/08/17 16:09 05/08/17 16:09 05/08/17 16:09 05/08/17 16:09 Cardiovascular: Yes: Regular Rate, Rhythm. No: Edema, Murmur Respiratory: Yes: Wheezing (mildly improved). No: Accessory Muscle Use, Crackles, Rales, Rhonchi, Stridor, Respiratory Distress Capillary Refill: Normal (Less than 2 sec) Pulses: Normal Radial, Normal Dorsalis Pedis, Normal Posterior Tibialis Skin: Normal Color, Warm, Dry <Hank Blair - Last Filed: 05/08/17 17:48> Sepsis Progress Note - Non Invasive Reassessment Vital Sign (Latest): Temp Pulse Resp BP Pulse Ox 99.2 F 78 18 139/71 96 05/08/17 10:35 05/08/17 17:11 05/08/17 17:11 05/08/17 17:11 05/08/17 17:11
[2017-05-08] MEDS: Insulin Reg-MEDIUM-Coverage SC SCH ×2 (17:12→21:49)
[2017-05-08] MEDS ORDERED: Insulin Regular 1 UNITS/0.01 ML ML ONE (17:12)
[2017-05-08] MEDS: Arformoterol 15 mcg/2 ml Inh Sol IH SCH (20:45)
[2017-05-08] MEDS: Budesonide 0.5 mg/2 ml Inhal Susp UD IH SCH (20:45)
[2017-05-08 21:32] LABS: VENOUS BLOOD GAS BASE EXCESS 5.2 mmol/L (0.0-2.0); VENOUS BLOOD GAS PO2 87 mm/Hg (30-55); VENOUS BLOOD PH 7.45 (7.32-7.43)
[2017-05-08 22:53] VITALS: BMI 19.5
[2017-05-08] MEDS ORDERED: Influenza Vaccine 60 mcg/0.5 mL SYR (4YR UP) IM ONE (22:53)
[2017-05-08] MEDS ORDERED: Pneumococcal 23-Valent Vaccine IM ONE (22:53)
[2017-05-09] MEDS: MethylPREDNISolone 40 mg Vial IVP SCH ×5 (00:13→22:10)
[2017-05-09] MEDS: Albuterol-Ipratrop 3 mg / 0.5 (3 ml) UD IH SCH ×7 (00:28→23:00)
[2017-05-09 01:19] LABS: VENOUS BLOOD GAS BASE EXCESS 6.9 mmol/L (0.0-2.0); VENOUS BLOOD GAS PO2 82 mm/Hg (30-55); VENOUS BLOOD PH 7.43 (7.32-7.43)
[2017-05-09 06:35] LABS: GRAN # 14.55 (1.4-6.5); HEMOGLOBIN 11.2 g/dL (12.0-16.0); LYMPH # 1.2 (1.2-3.4); LYMPH % 7.6 % (22.0-35.0); MEAN CELL VOLUME 82.4 fl (80.0-105.0); MEAN CORPUSCULAR HEMOGLOBIN 27.5 pg (25.0-35.0); MEAN CORPUSCULAR HGB CONC 33.3 g/dl (31.0-37.0); MEAN PLATELET VOLUME 10.1 fl (7.0-11.0); MONO # 0.2 (0.1-0.6); MONO % 1.4 % (1.0-6.0); RBC 4.08 10^6/uL (3.5-6.1); RED CELL DISTRIBUTION WIDTH 12.8 % (11.5-14.5)
[2017-05-09 06:50] LABS: ALB/GLOB RATIO 1.1 (1.1-1.8); ALBUMIN 3.3 g/dL (3.0-4.8); ALT/SGPT 25 U/L (7-56); AST/SGOT 29 U/L (14-36); BLOOD UREA NITROGEN 19 mg/dL (7-21); GFR AFRICAN-AMERICAN > 60; GFR NON-AFRICAN AMERICAN > 60
[2017-05-09] MEDS: Arformoterol 15 mcg/2 ml Inh Sol IH SCH ×2 (07:49→19:44)
[2017-05-09] MEDS: Budesonide 0.5 mg/2 ml Inhal Susp UD IH SCH ×2 (07:50→19:44)
[2017-05-09] MEDS: Insulin Reg-MEDIUM-Coverage SC SCH ×4 (08:04→22:04)
--- NOTE | 2017-05-09 09:45 | CARD ---
APPROVED REPORT EKG Measurement Heart [id number] ME [id number] <Conclusion> Sinus rhythm with 1st degree AV block NSSTW changes No change
[2017-05-09] MEDS: cefTRIAXone 1 gm 1 GM/100 ML BAG IVPB SCH (10:06)
--- NOTE | 2017-05-09 12:15 | CP.PCM.PN ---
<Mary Jackson - Last Filed: 05/09/17 12:09> Subjective - Date & Time of Evaluation Date of Evaluation: 05/09/17 Time of Evaluation: 12:09 - Subjective Subjective: Mary Jackson, PGY1, Medicine Progress note for Dr Blair: Patient seen and examined at bedside. No acute events overnight. Reports productive cough, but breathing improved since admission. Denies fever, chills, nausea, vomiting, abdominal pain, sob. Objective - Vital Signs/Intake and Output Vital Signs (last 24 hours): Temp Pulse Resp BP Pulse Ox 97.9 F 70 20 140/61 99 05/09/17 05:40 05/09/17 10:05 05/09/17 05:40 05/09/17 10:05 05/09/17 05:40 Intake and Output: 05/09/17 05/09/17 06:59 18:59 Intake Total 480 Balance 480 - Medications Medications: Current Medications Albuterol/Ipratropium (Duoneb 3 Mg/0.5 Mg (3 Ml) Ud) 3 ml [id number] Last Admin: 05/09/17 07:50 Dose: 3 ml Albuterol/Ipratropium (Duoneb 3 Mg/0.5 Mg (3 Ml) Ud) 3 ml IH Q2H PRN PRN Reason: Shortness of Breath Arformoterol Tartrate (Brovana) 15 mcg IH [id number] [facility] Last Admin: 05/09/17 07:49 Dose: 15 mcg Atorvastatin Calcium (Lipitor) 40 mg PO DAILY [facility] Last Admin: 05/09/17 10:05 Dose: 40 mg Budesonide (Pulmicort Respules) 0.5 mg IH [id number] [facility] Last Admin: 05/09/17 07:50 Dose: 0.5 mg Clopidogrel Bisulfate (Plavix) 75 mg PO DAILY [facility] Last Admin: 05/09/17 10:05 Dose: 75 mg Digoxin (Digoxin) 0.125 mg PO 1400 [facility] Famotidine (Pepcid) 20 mg PO 1000,2200 [facility] Last Admin: 05/09/17 10:05 Dose: 20 mg Ceftriaxone Sodium (Rocephin 1 Gram Ivpb) 1 gm in 100 mls @ 100 mls/hr IVPB DAILY [facility] PRN Reason: Protocol Last Admin: 05/09/17 10:06 Dose: 100 mls/hr Azithromycin (Zithromax 500mg In Ns) 500 mg in 250 mls @ 167 mls/hr IVPB DAILY [facility] PRN Reason: Protocol Insulin Human Regular (Humulin R Med) 0 units SC ACHS [facility] PRN Reason: Protocol Last Admin: 05/09/17 08:04 Dose: 3 units Lisinopril (Zestril) 10 mg PO DAILY [facility] Last Admin: 05/09/17 10:05 Dose: 10 mg Methylprednisolone (Solu-Medrol) 30 mg IVP Q8H [facility] Montelukast Sodium (Singulair) 10 mg PO DAILY [facility] Last Admin: 05/09/17 10:05 Dose: 10 mg - Labs Labs: 05/09/17 06:02 05/09/17 06:02 PT 11.5 SECONDS (9.4-12.5) 05/08/17 10:50 INR 1.00 (0.93-1.08) 05/08/17 10:50 APTT 28.7 Seconds (25.1-36.5) 05/08/17 10:50 - Additional Findings Additional findings: - Constitutional Appears: Non-toxic, No Acute Distress, Older Than Stated Age - Head Exam Head Exam: ATRAUMATIC, NORMOCEPHALIC - Eye Exam Eye Exam: EOMI, PERRL. absent: Conjunctival injection, Periorbital swelling, Scleral icterus Pupil Exam: NORMAL ACCOMODATION, PERRL. absent: Fixed, Irregular, Unequal - ENT Exam ENT Exam: Mucous Membranes Moist - Neck Exam Neck exam: Positive for: Full Rom - Respiratory Exam Respiratory Exam: Wheezes (diffuse, bilaterally, improved since yesterday). absent: Accessory Muscle Use, Chest Wall Tenderness, Decreased Breath Sounds, Rhonchi, Respiratory Distress, Stridor - Cardiovascular Exam Cardiovascular Exam: RRR, +S1, +S2. absent: Systolic Murmur - GI/Abdominal Exam GI & Abdominal Exam: Normal Bowel Sounds, Soft. absent: Distended, Organomegaly , Rebound, Rigid, Tenderness - Extremities Exam Extremities exam: Positive for: normal inspection. Negative for: calf tenderness, pedal edema - Back Exam Back exam: NORMAL INSPECTION - Neurological Exam Neurological exam: Alert, Oriented x3 - Psychiatric Exam Psychiatric exam: Normal Affect, Normal Mood - Skin Skin Exam: Dry, Normal Color, Warm Assessment and Plan - Assessment and Plan (Free Text) Assessment: 72 year old female with PMH COPD, HTN, TB, CAD x 2 stents (mid LAD and RCA - 2016), paroxysmal afib, DM2, presents for sob for past few days: SOB: 2/2 likely COPD exacerbation vs CAP vs CHF vs GERD vs PE (less likely) - Wean down on Solumedrol to 30 IV q8, duonebs q4 woody and q2 prn - C/w home brovana, pulmicort, singulair. - O2 prn NC. not on home O2 - CXR showed right infrahilar patchy atelectasis vs infiltrate. Gross granulomatous changes in bilateral apices - Given Azithro and rocephin in ED. Will c/w abx - procal low - hold home beta tata in setting of bronchospasm - Cont to monitor Leukocytosis: - steroid induced vs CAP vs other infectious etiology - procal low - CXR showed right infrahilar patchy atelectasis vs infiltrate. Gross granulomatous changes in bilateral apices - UA neg for infection. urine culture pending. blood culture neg to date. - cont to trend - daily cbc HX of CAD/HTN: - allergic to aspirin - C/w home plavix and lisinopril. - currently BP controlled - will hold carvedilol in setting of bronchospasm Hx of DM: - hold home oral antihypoglycemics - ISS - Cont to monitor PPX: Pecid, SCds Discussed with Dr Blair. <Hank Blair - Last Filed: 05/09/17 14:02> Objective - Vital Signs/Intake and Output Vital Signs (last 24 hours): Temp Pulse Resp BP Pulse Ox 98.1 F 87 16 123/77 99 05/09/17 12:00 05/09/17 12:00 05/09/17 12:00 05/09/17 12:00 05/09/17 05:40 Intake and Output: 05/09/17 05/09/17 06:59 18:59 Intake Total 480 Balance 480 - Medications Medications: Current Medications Albuterol/Ipratropium (Duoneb 3 Mg/0.5 Mg (3 Ml) Ud) 3 ml IH [id number] [facility] Last Admin: 05/09/17 12:54 Dose: 3 ml Albuterol/Ipratropium (Duoneb 3 Mg/0.5 Mg (3 Ml) Ud) 3 ml IH Q2H PRN PRN Reason: Shortness of Breath Arformoterol Tartrate (Brovana) 15 mcg [facility] [id number] Last Admin: 05/09/17 07:49 Dose: 15 mcg Atorvastatin Calcium (Lipitor) 40 mg PO DAILY [facility] Last Admin: 05/09/17 10:05 Dose: 40 mg Budesonide (Pulmicort Respules) 0.5 mg IH [id number] [facility] Last Admin: 05/09/17 07:50 Dose: 0.5 mg Clopidogrel Bisulfate (Plavix) 75 mg PO [facility]ILY [facility] Last Admin: 05/09/17 10:05 Dose: 75 mg Digoxin (Digoxin) 0.125 mg PO 1400 [facility] Famotidine (Pepcid) 20 mg PO 1000,2200 [facility] Last Admin: 05/09/17 10:05 Dose: 20 mg Ceftriaxone Sodium (Rocephin 1 Gram Ivpb) 1 gm in 100 mls @ 100 mls/hr IVPB [facility] PRN Reason: Protocol Last Admin: 05/09/17 10:06 Dose: 100 mls/hr Azithromycin (Zithromax 500mg In Ns) 500 mg in 250 mls @ 167 mls/hr IVPB [facility] PRN Reason: Protocol Last Admin: 05/09/17 13:21 Dose: 167 mls/hr Insulin Human Regular (Humulin R Med) 0 units SC ACHS [facility] PRN Reason: Protocol Last Admin: 05/09/17 12:55 Dose: 7 units Lisinopril (Zestril) 10 mg PO DAILY [facility] Last Admin: 05/09/17 10:05 Dose: 10 mg Methylprednisolone (Solu-Medrol) 30 mg IVP Q8H [facility] Last Admin: 05/09/17 13:28 Dose: Not Given Montelukast Sodium (Singulair) 10 mg PO DAILY [facility] Last Admin: 05/09/17 10:05 Dose: 10 mg - Labs Labs: 05/09/17 06:02 05/09/17 06:02 PT 11.5 SECONDS (9.4-12.5) 05/08/17 10:50 INR 1.00 (0.93-1.08) 05/08/17 10:50 APTT 28.7 Seconds (25.1-36.5) 05/08/17 10:50 Attending/Attestation - Attestation I have personally seen and examined this patient.: Yes I have fully participated in the care of the patient.: Yes I have reviewed all pertinent clinical information, including history, physical exam and plan: Yes Notes (Text): 05/09/17 14:01 72 year old female with past medical history of COPD, hypertension, CAD s/p stents, and diabetes who presented with shortness of breath secondary to asthma/ COPD exacerbation and possible right infrahilar infiltrate/pneumonia on CXR. Continue with iv steroids, iv antibiotics and duonebs. Leukocytosis possibly secondary to above vs recent steroids therapy. Will continue to monitor. Continue with home medications for CAD/hypertension except BB for now. PBNP is mildly elevated; echocardiogram is pending. Hank Blair MD Hospitalist.
[2017-05-09] MEDS: Azithromycin 500MG/NS 250ml 500 MG/250 ML BAG IVPB SCH (13:21)
[2017-05-09] MEDS: Digoxin 125 mcg (0.125 mg) Tab PO SCH (15:24)
[2017-05-10] MEDS: Albuterol-Ipratrop 3 mg / 0.5 (3 ml) UD IH SCH ×5 (04:19→20:40)
[2017-05-10] MEDS: MethylPREDNISolone 40 mg Vial IVP SCH ×4 (05:35→20:25)
[2017-05-10 06:40] LABS: GRAN # 12.56 (1.4-6.5); GRAN % 89.3 % (50.0-68.0); LYMPH % 7.1 % (22.0-35.0); MEAN CELL VOLUME 82.2 fl (80.0-105.0); MEAN CORPUSCULAR HEMOGLOBIN 27.2 pg (25.0-35.0); MEAN PLATELET VOLUME 9.7 fl (7.0-11.0); MONO # 0.5 (0.1-0.6); MONO % 3.6 % (1.0-6.0); RBC 4.05 10^6/uL (3.5-6.1); RED CELL DISTRIBUTION WIDTH 12.8 % (11.5-14.5); WHITE BLOOD COUNT 14.1 10^3/ul (4.5-11.0)
[2017-05-10] MEDS: Insulin Reg-MEDIUM-Coverage SC SCH ×4 (07:57→22:00)
[2017-05-10] MEDS: Arformoterol 15 mcg/2 ml Inh Sol IH SCH ×2 (08:14→20:40)
--- NOTE | 2017-05-10 08:46 | CARD ---
APPROVED REPORT EXAM: Two-dimensional and M-mode echocardiogram with Doppler and color Doppler. Other Information Quality : PoorRhythm : 2D DIMENSIONS Left Atrium (2D)2.7 (1.6-4.0cm)IVSd1.0 (0.7-1.1cm) LVDd4.5 (3.9-5.9cm)LVOT Diameter2.0 (1.8-2.4cm) PWd0.9 (0.7-1.1cm)LVDs2.9 (2.5-4.0cm) FS (%) 36.2 %LVEF (%)66.0 (>50%) M-Mode DIMENSIONS Left Atrium (MM)4.00 (2.5-4.0cm)Aortic Root3.30 (2.2-3.7cm) Aortic Cusp Exc.1.40 (1.5-2.0cm) Aortic Valve AoV Peak Xkpezyki736.0cm/Tess Peak GR.12mmHgAI P 1/2 [id number] Mitral Valve MV E Rwhpjobw45.8cm/sMV E Peak Gr.151mmHgMV A Mkvigldm799.0cm/s E/A ratio0.7 TDI Lateral E' Peak V8.77cm/sMedial E' Peak V6.53cm/sE/Lateral E'10.5 E/Medial E'14.1 Tricuspid Valve TR Peak [id number]/sRAP [id number] Peak Gr.18mmHg [id number] LEFT VENTRICLE The left ventricle is normal size. There is normal left ventricular wall thickness. The left ventricular function is normal. The left ventricular ejection fraction is within the normal range. There is normal LV segmental wall motion. RIGHT VENTRICLE The right ventricle is normal size. ATRIA The left atrium size is normal. The right atrium size is normal. The interatrial septum is intact with no evidence for an atrial septal defect. AORTIC VALVE The aortic valve is mildly to moderately calcified. MITRAL VALVE The mitral valve is normal in structure. Mitral regurgitation is mild. TRICUSPID VALVE The tricuspid valve is not well visualized. PULMONIC VALVE The pulmonic valve is not well visualized. <Conclusion> Very limited study. The left ventricle is normal size. There is normal left ventricular wall thickness. The left ventricular function is normal. The aortic valve is mildly to moderately calcified. Aortic sclerosis. Mitral regurgitation is mild.
[2017-05-10] MEDS: cefTRIAXone 1 gm 1 GM/100 ML BAG IVPB SCH (09:35)
[2017-05-10 10:45] LABS: ALB/GLOB RATIO 1.1 (1.1-1.8); ALBUMIN 3.2 g/dL (3.0-4.8); ALT/SGPT 28 U/L (7-56); AST/SGOT 28 U/L (14-36); BLOOD UREA NITROGEN 26 mg/dL (7-21); CALCIUM 9.2 mg/dL (8.4-10.5); GFR AFRICAN-AMERICAN > 60; GFR NON-AFRICAN AMERICAN > 60
[2017-05-10] MEDS: Azithromycin 500MG/NS 250ml 500 MG/250 ML BAG IVPB SCH (10:51)
[2017-05-10] MEDS: Digoxin 125 mcg (0.125 mg) Tab PO SCH (13:05)
--- NOTE | 2017-05-10 14:29 | CP.PCM.PN ---
<Ra Casillas - Last Filed: 05/10/17 14:26> Subjective - Date & Time of Evaluation Date of Evaluation: 05/10/17 Time of Evaluation: 14:26 - Subjective Subjective: Medicine Progress Note: Patient seen and assessed at bedside. No acute events noted overnight by patient or nursing staff. Patient endorses that she continues to have mild SOB with exertion but denies any SOB at rest. She also reports that this has improved since admission. She denies any fever, chills, headache, chest pain, palpitations, abdominal pain, N/V/D/C, urinary symptoms, skin changes or any numbness/tingling/weakness of any extremity. Objective - Vital Signs/Intake and Output Vital Signs (last 24 hours): Temp Pulse Resp BP Pulse Ox 97.8 F 82 17 143/76 96 05/10/17 12:00 05/10/17 12:00 05/10/17 12:00 05/10/17 12:00 05/10/17 05:27 Intake and Output: 05/10/17 05/10/17 06:59 18:59 Intake Total 240 Balance 240 - Medications Medications: Current Medications Albuterol/Ipratropium (Duoneb 3 Mg/0.5 Mg (3 Ml) Ud) 3 ml IH [id number] [facility] Last Admin: 05/10/17 08:11 Dose: 3 ml Albuterol/Ipratropium (Duoneb 3 Mg/0.5 Mg (3 Ml) Ud) 3 ml IH Q2H PRN PRN Reason: Shortness of Breath Arformoterol Tartrate (Brovana) 15 mcg IH [id number] [facility] Last Admin: 05/10/17 08:14 Dose: 15 mcg Atorvastatin Calcium (Lipitor) 40 mg PO DAILY [facility] Last Admin: 05/10/17 09:35 Dose: 40 mg Budesonide (Pulmicort Respules) 0.5 mg IH [id number] [facility] Last Admin: 05/09/17 19:44 Dose: 0.5 mg Clopidogrel Bisulfate (Plavix) 75 mg PO DAILY [facility] Last Admin: 05/10/17 09:35 Dose: 75 mg Digoxin (Digoxin) 0.125 mg PO 1400 [facility] Last Admin: 05/10/17 13:05 Dose: 0.125 mg Famotidine (Pepcid) 20 mg PO 1000,2200 [facility] Last Admin: 02/17/18 09:35 Dose: 20 mg Home Med (Home Med) 1 unit PO BID [facility] Ceftriaxone Sodium (Rocephin 1 Gram Ivpb) 1 gm in 100 mls @ 100 mls/hr IVPB DAILY [facility] PRN Reason: Protocol Last Admin: 05/10/17 09:35 Dose: 100 mls/hr Azithromycin (Zithromax 500mg In Ns) 500 mg in 250 mls @ 167 mls/hr IVPB DAILY [facility] PRN Reason: Protocol Last Admin: 05/10/17 10:51 Dose: 167 mls/hr Insulin Human Regular (Humulin R Med) 0 units SC ACHS [facility] PRN Reason: Protocol Last Admin: 05/10/17 11:31 Dose: 10 units Lisinopril (Zestril) 10 mg PO DAILY [facility] Last Admin: 05/10/17 09:35 Dose: 10 mg Methylprednisolone (Solu-Medrol) 20 mg IVP Q8H [facility] Last Admin: 05/10/17 13:30 Dose: Not Given Montelukast Sodium (Singulair) 10 mg PO DAILY [facility] Last Admin: 05/10/17 09:36 Dose: 10 mg - Labs Labs: 05/10/17 06:00 05/10/17 06:00 PT 11.5 SECONDS (9.4-12.5) 05/08/17 10:50 INR 1.00 (0.93-1.08) 05/08/17 10:50 APTT 28.7 Seconds (25.1-36.5) 05/08/17 10:50 - Constitutional Appears: Non-toxic, No Acute Distress - Head Exam Head Exam: ATRAUMATIC, NORMAL INSPECTION, NORMOCEPHALIC - Eye Exam Eye Exam: EOMI, Normal appearance, PERRL - ENT Exam ENT Exam: Mucous Membranes Moist, Normal Exam - Neck Exam Neck Exam: Full ROM, Normal Inspection. absent: Lymphadenopathy - Respiratory Exam Respiratory Exam: Wheezes (Diffuse expiratory wheezing bilaterally; noted to be improved from previous exam), NORMAL BREATHING PATTERN. absent: Accessory Muscle Use, Chest Wall Tenderness, Decreased Breath Sounds, Clear to Ausculation Bilateral, Prolonged Expiratory Phase, Rales, Rhonchi, Respiratory Distress, Stridor - Cardiovascular Exam Cardiovascular Exam: REGULAR RHYTHM, RRR, +S1, +S2 - GI/Abdominal Exam GI & Abdominal Exam: Soft, Normal Bowel Sounds. absent: Tenderness - Extremities Exam Extremities Exam: Full ROM, Normal Capillary Refill, Normal Inspection. absent : Calf Tenderness - Back Exam Back Exam: NORMAL INSPECTION - Neurological Exam Neurological Exam: Alert, Awake, CN II-XII Intact, Oriented x3 - Psychiatric Exam Psychiatric exam: Normal Affect, Normal Mood - Skin Skin Exam: Dry, Intact, Normal Color, Warm Assessment and Plan - Assessment and Plan (Free Text) Assessment: 72 year old female with a past medical history significant for COPD, HTN, TB, CAD x 2 stents(mid LAD and RCA in 2016), paroxysmal A-Fib, and DM2 who presented SOB and was later diagnosed and currently being treated for COPD exacerbation. Patient continues to have hyperglycemia on SSI and home DM2 medication was started today. Plan: 1. COPD Exacerbation -Chest X-Ray showed right infra-hilar patchy atelectasis versus infiltrate and gross granulomatous changes in bilateral apices -Continue with Zithromax and Rocephin -Continue with Duonebs Q4 scheduled and Q2 PRN -Tapered Solu-Medrol to 20mg IV Q8 -Continue home Brovana, Pulmicort and Singulair -Continue with supplemental oxygen 2. History of DM2 -SSI-Medium and Accuchecks ACHS -Started home Alogliptin-Metformin as patient continued to have hyperglycemia 3. History of HTN -Continue Lisinopril 4. History of CAD -Continue home ASA, Plavix, Lipitor and Digoxin -Holding home Carvedilol in setting of bronchospasm GI Prophylaxis: Pepcid DVT Prophylaxis: SCD's Patient seen and case discussed with attending, Dr. Blair. <Hank Blair - Last Filed: 05/10/17 15:29> Objective - Vital Signs/Intake and Output Vital Signs (last 24 hours): Temp Pulse Resp BP Pulse Ox 97.8 F 80 17 143/76 96 05/10/17 12:00 05/10/17 14:00 05/10/17 12:00 05/10/17 12:00 05/10/17 05:27 Intake and Output: 05/10/17 05/10/17 06:59 18:59 Intake Total 240 Balance 240 - Medications Medications: Current Medications Albuterol/Ipratropium (Duoneb 3 Mg/0.5 Mg (3 Ml) Ud) 3 ml IH [id number] [facility] Last Admin: 05/10/17 08:11 Dose: 3 ml Albuterol/Ipratropium (Duoneb 3 Mg/0.5 Mg (3 Ml) Ud) 3 ml IH Q2H PRN PRN Reason: Shortness of Breath Arformoterol Tartrate (Brovana) 15 mcg IH [id number] [facility] Last Admin: 05/10/17 08:14 Dose: 15 mcg Atorvastatin Calcium (Lipitor) 40 mg PO DAILY [facility] Last Admin: 05/10/17 09:35 Dose: 40 mg Budesonide (Pulmicort Respules) 0.5 mg IH [id number] [facility] Last Admin: 05/09/17 19:44 Dose: 0.5 mg Clopidogrel Bisulfate (Plavix) 75 mg PO DAILY [facility] Last Admin: 05/10/17 09:35 Dose: 75 mg Digoxin (Digoxin) 0.125 mg PO 1400 [facility] Last Admin: 05/10/17 13:05 Dose: 0.125 mg Famotidine (Pepcid) 20 mg PO 1000,2200 [facility] Last Admin: 05/10/17 09:35 Dose: 20 mg Home Med (Home Med) 1 unit PO BID [facility] Ceftriaxone Sodium (Rocephin 1 Gram Ivpb) 1 gm in 100 mls @ 100 mls/hr IVPB DAILY [facility] PRN Reason: Protocol Last Admin: 05/10/17 09:35 Dose: 100 mls/hr Azithromycin (Zithromax 500mg In Ns) 500 mg in 250 mls @ 167 mls/hr IVPB DAILY [facility] PRN Reason: Protocol Last Admin: 05/10/17 10:51 Dose: 167 mls/hr Insulin Human Regular (Humulin R Med) 0 units SC ACHS [facility] PRN Reason: Protocol Last Admin: 05/10/17 11:31 Dose: 10 units Lisinopril (Zestril) 10 mg PO DAILY [facility] Last Admin: 05/10/17 09:35 Dose: 10 mg Methylprednisolone (Solu-Medrol) 20 mg IVP Q8H [facility] Last Admin: 05/10/17 13:30 Dose: Not Given Montelukast Sodium (Singulair) 10 mg PO DAILY [facility] Last Admin: 05/10/17 09:36 Dose: 10 mg - Labs Labs: 05/10/17 06:00 05/10/17 06:00 PT 11.5 SECONDS (9.4-12.5) 05/08/17 10:50 INR 1.00 (0.93-1.08) 05/08/17 10:50 APTT 28.7 Seconds (25.1-36.5) 05/08/17 10:50 Attending/Attestation - Attestation I have personally seen and examined this patient.: Yes I have fully participated in the care of the patient.: Yes I have reviewed all pertinent clinical information, including history, physical exam and plan: Yes Notes (Text): 05/10/17 15:26 72 year old female with past medical history of COPD, hypertension, CAD s/p stents, and diabetes who presented with shortness of breath secondary to asthma/ COPD exacerbation and possible right infrahilar infiltrate/pneumonia on CXR. Symptoms are improving on tapering iv steroids, iv antibiotics and duonebs. Leukocytosis possibly secondary to above vs recent steroids therapy, also continues to improve. Continue with home medications for CAD/hypertension except BB for now. PBNP is mildly elevated; echocardiogram was reviewed with normal LVEF. Hyperglycemia likely secondary to iv steroids; will resume home medication for diabetes in addition to sliding scale. Overall symptoms are improving. Possible d/c planning in 24-48 hrs. Hank Blair MD Hospitalist.
[2017-05-10] MEDS: ALOGLIPTIN PO SCH (17:05)
[2017-05-10] MEDS: METFORMIN PO SCH (17:05)
[2017-05-10] MEDS: Budesonide 0.5 mg/2 ml Inhal Susp UD IH SCH (20:40)
[2017-05-11] MEDS: Albuterol-Ipratrop 3 mg / 0.5 (3 ml) UD IH SCH ×6 (00:15→23:59)
[2017-05-11] MEDS: MethylPREDNISolone 40 mg Vial IVP SCH ×3 (05:20→21:21)
[2017-05-11 06:11] LABS: BASO # 0.01 K/mm3 (0.0-2.0); BASO % 0.1 % (0.0-3.0); GRAN # 10.82 (1.4-6.5); GRAN % 83.6 % (50.0-68.0); LYMPH # 1.2 (1.2-3.4); LYMPH % 9.6 % (22.0-35.0); MEAN CELL VOLUME 83.2 fl (80.0-105.0); MEAN CORPUSCULAR HEMOGLOBIN 27.2 pg (25.0-35.0); MEAN CORPUSCULAR HGB CONC 32.6 g/dl (31.0-37.0); MEAN PLATELET VOLUME 9.8 fl (7.0-11.0); MONO # 0.9 (0.1-0.6); MONO % 6.7 % (1.0-6.0); RBC 4.05 10^6/uL (3.5-6.1); RED CELL DISTRIBUTION WIDTH 12.8 % (11.5-14.5); WHITE BLOOD COUNT 12.9 10^3/ul (4.5-11.0)
[2017-05-11 06:32] LABS: ALB/GLOB RATIO 1.1 (1.1-1.8); ALBUMIN 3.2 g/dL (3.0-4.8); ALT/SGPT 22 U/L (7-56); AST/SGOT 26 U/L (14-36); BLOOD UREA NITROGEN 21 mg/dL (7-21); GFR AFRICAN-AMERICAN > 60; GFR NON-AFRICAN AMERICAN > 60
[2017-05-11 07:03] VITALS: RESP 20
[2017-05-11] MEDS: Budesonide 0.5 mg/2 ml Inhal Susp UD IH SCH ×2 (07:15→20:12)
[2017-05-11] MEDS: Arformoterol 15 mcg/2 ml Inh Sol IH SCH ×2 (07:15→20:12)
[2017-05-11] MEDS: Insulin Reg-MEDIUM-Coverage SC SCH ×4 (08:39→21:47)
--- NOTE | 2017-05-11 12:07 | CP.PCM.PN ---
<Ra Casillas - Last Filed: 05/11/17 17:52> Subjective - Date & Time of Evaluation Date of Evaluation: 05/11/17 Time of Evaluation: 12:02 - Subjective Subjective: Medicine Progress Note: Patient seen and assessed at bedside. No acute events noted overnight by patient or nursing staff. Patient endorses that she continues to have intermittent SOB with exertion but denies any SOB at rest but that this is improving. She denies any fever, chills, headache, chest pain, palpitations, abdominal pain, N/V/D/C, urinary symptoms, skin changes or any numbness/tingling /weakness of any extremity. Objective - Vital Signs/Intake and Output Vital Signs (last 24 hours): Temp Pulse Resp BP Pulse Ox 98 F 79 20 167/81 H 97 05/11/17 06:00 05/11/17 06:00 05/11/17 06:00 05/11/17 06:00 05/11/17 06:00 Intake and Output: 05/11/17 05/11/17 06:59 18:59 Intake Total 240 Balance 240 - Medications Medications: Current Medications Albuterol/Ipratropium (Duoneb 3 Mg/0.5 Mg (3 Ml) Ud) 3 ml IH [id number] [facility] Last Admin: 05/11/17 11:08 Dose: 3 ml Albuterol/Ipratropium (Duoneb 3 Mg/0.5 Mg (3 Ml) Ud) 3 ml IH Q2H PRN PRN Reason: Shortness of Breath Arformoterol Tartrate (Brovana) 15 mcg IH [id number] [facility] Last Admin: 05/11/17 07:15 Dose: 15 mcg Atorvastatin Calcium (Lipitor) 40 mg PO DAILY [facility] Last Admin: 05/10/17 09:35 Dose: 40 mg Budesonide (Pulmicort Respules) 0.5 mg IH [id number] [facility] Last Admin: 05/11/17 07:15 Dose: 0.5 mg Clopidogrel Bisulfate (Plavix) 75 mg PO DAILY [facility] Last Admin: 05/10/17 09:35 Dose: 75 mg Digoxin (Digoxin) 0.125 mg PO 1400 [facility] Last Admin: 05/10/17 13:05 Dose: 0.125 mg Famotidine (Pepcid) 20 mg PO 1000,2200 [facility] Last Admin: 05/10/17 22:00 Dose: 20 mg Home Med (Home Med) 1 unit PO BID [facility] Last Admin: 05/10/17 17:05 Dose: 1 unit Ceftriaxone Sodium (Rocephin 1 Gram Ivpb) 1 gm in 100 mls @ 100 mls/hr IVPB DAILY [facility] PRN Reason: Protocol Last Admin: 05/10/17 09:35 Dose: 100 mls/hr Azithromycin (Zithromax 500mg In Ns) 500 mg in 250 mls @ 167 mls/hr IVPB DAILY [facility] PRN Reason: Protocol Last Admin: 05/10/17 10:51 Dose: 167 mls/hr Insulin Human Regular (Humulin R Med) 0 units SC ACHS [facility] PRN Reason: Protocol Last Admin: 05/11/17 08:39 Dose: 3 units Lisinopril (Zestril) 10 mg PO DAILY [facility] Last Admin: 05/10/17 09:35 Dose: 10 mg Methylprednisolone (Solu-Medrol) 20 mg IVP Q8H [facility] Last Admin: 05/11/17 05:20 Dose: 20 mg Montelukast Sodium (Singulair) 10 mg PO DAILY [facility] Last Admin: 05/10/17 09:36 Dose: 10 mg - Labs Labs: 05/11/17 05:40 05/11/17 05:40 PT 11.5 SECONDS (9.4-12.5) 05/08/17 10:50 INR 1.00 (0.93-1.08) 05/08/17 10:50 APTT 28.7 Seconds (25.1-36.5) 05/08/17 10:50 - Constitutional Appears: Non-toxic, No Acute Distress - Head Exam Head Exam: ATRAUMATIC, NORMOCEPHALIC - Eye Exam Eye Exam: EOMI, Normal appearance, PERRL - ENT Exam ENT Exam: Mucous Membranes Moist - Neck Exam Neck Exam: Full ROM. absent: Lymphadenopathy - Respiratory Exam Respiratory Exam: Rhonchi (Trace; scattered), Wheezes (Expiratory; scattered), NORMAL BREATHING PATTERN. absent: Accessory Muscle Use, Decreased Breath Sounds , Clear to Ausculation Bilateral, Prolonged Expiratory Phase, Rales, Respiratory Distress, Stridor - Cardiovascular Exam Cardiovascular Exam: REGULAR RHYTHM, RRR, +S1, +S2 - GI/Abdominal Exam GI & Abdominal Exam: Soft, Normal Bowel Sounds. absent: Tenderness - Extremities Exam Extremities Exam: Full ROM, Normal Capillary Refill. absent: Calf Tenderness, Joint Swelling, Pedal Edema - Neurological Exam Neurological Exam: Alert, Awake, CN II-XII Intact, Normal Gait, Oriented x3 - Psychiatric Exam Psychiatric exam: Normal Affect, Normal Mood - Skin Skin Exam: Dry, Intact, Normal Color, Warm Assessment and Plan - Assessment and Plan (Free Text) Assessment: 72 year old female with a past medical history significant for COPD, HTN, TB, CAD x 2 stents(mid LAD and RCA in 2016), paroxysmal A-Fib, and DM2 who presented SOB and was later diagnosed and currently being treated for COPD exacerbation. Patient with improvement in hyperglycemia after her home DM2 medication was started. Plan: 1. COPD Exacerbation -Chest X-Ray showed right infra-hilar patchy atelectasis versus infiltrate and gross granulomatous changes in bilateral apices -Continue with Zithromax and Rocephin -Continue with Duonebs Q4 scheduled and Q2 PRN -Continue Solu-Medrol 20mg IV Q8 -Continue home Brovana, Pulmicort and Singulair -Continue with supplemental oxygen as needed 2. History of DM2 -SSI-Medium and Accuchecks ACHS -Continue Alogliptin-Metformin 3. History of HTN -Continue Lisinopril 4. History of CAD -Continue home Lipitor and Plavix -Holding home Carvedilol in setting of bronchospasm 5. History of Paroxsymal Atrial Fibrillation -Continue home Digoxin GI Prophylaxis: Pepcid DVT Prophylaxis: SCD's Patient seen and case discussed with attending, Dr. Blair. <Hank Blair - Last Filed: 05/12/17 07:11> Objective - Vital Signs/Intake and Output Vital Signs (last 24 hours): Temp Pulse Resp BP Pulse Ox 98 F 70 20 141/84 96 05/12/17 05:48 05/12/17 05:48 05/12/17 05:48 05/12/17 05:48 05/12/17 05:48 Intake and Output: 05/12/17 05/12/17 06:59 18:59 Intake Total 120 Balance 120 - Medications Medications: Current Medications Albuterol/Ipratropium (Duoneb 3 Mg/0.5 Mg (3 Ml) Ud) 3 ml IH [id number] Last Admin: 05/11/17 23:59 Dose: 3 ml Albuterol/Ipratropium (Duoneb 3 Mg/0.5 Mg (3 Ml) Ud) 3 ml IH Q2H PRN PRN Reason: Shortness of Breath Arformoterol Tartrate (Brovana) 15 mcg IH [id number] [facility] Last Admin: 05/11/17 20:12 Dose: 15 mcg Atorvastatin Calcium (Lipitor) 40 mg PO DAILY [facility] Last Admin: 05/11/17 12:17 Dose: 40 mg Budesonide (Pulmicort Respules) 0.5 mg IH [id number] [facility] Last Admin: 05/11/17 20:12 Dose: 0.5 mg Clopidogrel Bisulfate (Plavix) 75 mg PO DAILY [facility] Last Admin: 05/11/17 11:55 Dose: 75 mg Digoxin (Digoxin) 0.125 mg PO 1400 [facility] Last Admin: 05/11/17 16:58 Dose: 0.125 mg Famotidine (Pepcid) 20 mg PO 1000,2200 [facility] Last Admin: 05/11/17 21:21 Dose: 20 mg Home Med (Home Med) 1 unit PO BID [facility] Last Admin: 05/11/17 18:54 Dose: 1 unit Ceftriaxone Sodium (Rocephin 1 Gram Ivpb) 1 gm in 100 mls @ 100 mls/hr IVPB DAILY [facility] PRN Reason: Protocol Last Admin: 05/11/17 12:24 Dose: 100 mls/hr Azithromycin (Zithromax 500mg In Ns) 500 mg in 250 mls @ 167 mls/hr IVPB DAILY [facility] PRN Reason: Protocol Last Admin: 05/11/17 12:16 Dose: 167 mls/hr Insulin Human Regular (Humulin R Med) 0 units SC ACHS [facility] PRN Reason: Protocol Last Admin: 05/11/17 21:47 Dose: Not Given Lisinopril (Zestril) 10 mg PO DAILY [facility] Last Admin: 05/11/17 12:17 Dose: 10 mg Methylprednisolone (Solu-Medrol) 20 mg IVP Q8H [facility] Last Admin: 05/11/17 21:21 Dose: 20 mg Montelukast Sodium (Singulair) 10 mg PO DAILY [facility] Last Admin: 05/11/17 12:25 Dose: 10 mg - Labs Labs: 05/11/17 05:40 05/11/17 05:40 PT 11.5 SECONDS (9.4-12.5) 05/08/17 10:50 INR 1.00 (0.93-1.08) 05/08/17 10:50 APTT 28.7 Seconds (25.1-36.5) 05/08/17 10:50 Attending/Attestation - Attestation I have personally seen and examined this patient.: Yes I have fully participated in the care of the patient.: Yes I have reviewed all pertinent clinical information, including history, physical exam and plan: Yes Notes (Text): 05/11/17 72 year old female with past medical history of COPD, hypertension, CAD s/p stents, and diabetes who presented with shortness of breath secondary to asthma/ COPD exacerbation and possible right infrahilar infiltrate/pneumonia on CXR. She is on iv steroids, iv antibiotics and duonebs. Still has wheezing and dyspnea on exertion today. Will keep same dose of steroids. Leukocytosis possibly secondary to above vs recent steroids therapy, has improved. Continue with home medications for CAD/hypertension except BB for now. PBNP is mildly elevated; echocardiogram was reviewed with normal LVEF. Hyperglycemia likely secondary to iv steroids; home medication for diabetes was resumed. She is also on insulin sliding scale. Hank Blair MD Hospitalist.
[2017-05-11] MEDS: ALOGLIPTIN PO SCH ×2 (12:08→18:54)
[2017-05-11] MEDS: METFORMIN PO SCH ×2 (12:08→18:54)
[2017-05-11] MEDS: Azithromycin 500MG/NS 250ml 500 MG/250 ML BAG IVPB SCH (12:16)
[2017-05-11] MEDS: cefTRIAXone 1 gm 1 GM/100 ML BAG IVPB SCH (12:24)
[2017-05-11] MEDS: Digoxin 125 mcg (0.125 mg) Tab PO SCH (16:58)
[2017-05-11 19:01] VITALS: PULSE 91
[2017-05-12] MEDS: Albuterol-Ipratrop 3 mg / 0.5 (3 ml) UD IH SCH ×3 (04:00→11:37)
[2017-05-12 05:49] VITALS: O2SAT 96
[2017-05-12] MEDS: Budesonide 0.5 mg/2 ml Inhal Susp UD IH SCH (07:49)
[2017-05-12] MEDS: Arformoterol 15 mcg/2 ml Inh Sol IH SCH (07:49)
[2017-05-12] MEDS: Insulin Reg-MEDIUM-Coverage SC SCH ×2 (08:11→12:25)
[2017-05-12] MEDS: cefTRIAXone 1 gm 1 GM/100 ML BAG IVPB SCH (09:40)
[2017-05-12] MEDS: ALOGLIPTIN PO SCH (09:42)
[2017-05-12] MEDS: METFORMIN PO SCH (09:42)
[2017-05-12] MEDS: Azithromycin 500MG/NS 250ml 500 MG/250 ML BAG IVPB SCH (10:57)
[2017-05-12 13:53] VITALS: BP 134/76; PULSE 96; TEMP 97.4
--- NOTE | 2017-05-12 14:14 | CP.PCM.DIS ---
Provider - Provider Date of Admission: 05/08/17 14:07 Attending physician: Hank Blair MD Hospital Course - Lab Results Lab Results: Micro Results 05/08/17 16:10 Urine Urine Culture - Final No Growth (<1,000 CFU/ML) Most Recent Lab Values WBC 12.9 10^3/ul (4.5-11.0) H 05/11/17 05:40 RBC 4.05 10^6/uL (3.5-6.1) 05/11/17 05:40 Hgb 11.0 g/dL (12.0-16.0) L 05/11/17 05:40 Hct 33.7 % (36.0-48.0) L 05/11/17 05:40 MCV 83.2 fl (80.0-105.0) 05/11/17 05:40 MCH 27.2 pg (25.0-35.0) 05/11/17 05:40 MCHC 32.6 g/dl (31.0-37.0) 05/11/17 05:40 RDW 12.8 % (11.5-14.5) 05/11/17 05:40 Plt Count 232 10^3/uL (120.0-450.0) 05/11/17 05:40 MPV 9.8 fl (7.0-11.0) 05/11/17 05:40 Gran % 83.6 % (50.0-68.0) H 05/11/17 05:40 Lymph % (Auto) 9.6 % (22.0-35.0) L 05/11/17 05:40 [place] % (Auto) 6.7 % (1.0-6.0) H 05/11/17 05:40 Eos % (Auto) 0.0 % (1.5-5.0) L 05/11/17 05:40 Baso % (Auto) 0.1 % (0.0-3.0) 05/11/17 05:40 Gran # 10.82 (1.4-6.5) H 05/11/17 05:40 Lymph # (Auto) 1.2 (1.2-3.4) 05/11/17 05:40 [place] # (Auto) 0.9 (0.1-0.6) H 05/11/17 05:40 Eos # (Auto) 0.0 (0.0-0.7) 05/11/17 05:40 Baso # (Auto) 0.01 K/mm3 (0.0-2.0) 05/11/17 05:40 Neutrophils % (Manual) 92 % (50.0-70.0) H 05/08/17 10:50 Band Neutrophils % 1 % (0-2) 05/08/17 10:50 Lymphocytes % (Manual) 4 % (22.0-35.0) L 05/08/17 10:50 Monocytes % (Manual) 3 % (1.0-6.0) 05/08/17 10:50 PT 11.5 SECONDS (9.4-12.5) 05/08/17 10:50 INR 1.00 (0.93-1.08) 05/08/17 10:50 APTT 28.7 Seconds (25.1-36.5) 05/08/17 10:50 pCO2 42 mm/Hg (35-45) 05/08/17 10:45 pO2 82 mm/Hg (30-55) H 05/09/17 01:05 HCO3 31.3 mmol/L (21-28) H 05/08/17 10:45 ABG pH 7.48 (7.35-7.45) H 05/08/17 10:45 ABG Total CO2 32.6 mmol.L (22-28) H 05/08/17 10:45 ABG O2 Saturation 95.6 % (95-98) 05/08/17 10:45 ABG Base Excess 7.0 mmol/L (-2.0-3.0) H 05/08/17 10:45 ABG Potassium 4.0 mmol/L (3.6-5.2) 05/08/17 10:45 VBG pH 7.43 (7.32-7.43) 05/09/17 01:05 VBG pCO2 49.0 (40-60) 05/09/17 01:05 VBG HCO3 32.5 mmol/l (21-28) H 05/09/17 01:05 VBG Total CO2 34.0 mmol.L (22-28) H 05/09/17 01:05 VBG O2 Sat (Calc) 98.5 % (40-65) H 05/09/17 01:05 VBG Base Excess 6.9 mmol/L (0.0-2.0) H 05/09/17 01:05 VBG Potassium 4.2 mmol/L (3.6-5.2) 05/09/17 01:05 Sodium 133.0 mmol/L (132-148) 05/09/17 01:05 Chloride 97.0 mmol/L (98-107) L 05/09/17 01:05 Glucose 320 mg/dl (65-105) H 05/09/17 01:05 Lactate 2.0 mmol/L (0.7-2.1) 05/09/17 01:05 FiO2 21.0 % 05/09/17 01:05 Sodium 136 mmol/L (132-148) 05/11/17 05:40 Potassium 4.0 mmol/L (3.6-5.0) 05/11/17 05:40 Chloride 94 mmol/L (98-107) L 05/11/17 05:40 Carbon Dioxide 32 mmol/L (21-33) 05/11/17 05:40 Anion Gap 14 (10-20) 05/11/17 05:40 BUN 21 mg/dL (7-21) 05/11/17 05:40 Creatinine 0.8 mg/dl (0.7-1.2) 05/11/17 05:40 Est GFR ( Amer) > 60 05/11/17 05:40 Est GFR (Non-Af Amer) > 60 05/11/17 05:40 POC Glucose (mg/dL) 184 mg/dL (65-110) H 05/12/17 11:41 Random Glucose 274 mg/dL (70-110) H 05/11/17 05:40 Lactic Acid 3.0 mmol/L (0.7-2.1) H 05/08/17 21:20 Calcium 9.0 mg/dL (8.4-10.5) 05/11/17 05:40 Phosphorus 2.7 mg/dL (2.5-4.5) 05/08/17 14:00 Magnesium 1.7 mg/dL (1.7-2.2) 05/08/17 14:00 Total Bilirubin 0.3 mg/dL (0.2-1.3) 05/11/17 05:40 AST 26 U/L (14-36) 05/11/17 05:40 ALT 22 U/L (7-56) 05/11/17 05:40 Alkaline Phosphatase 54 U/L (38-126) 05/11/17 05:40 Lactate Dehydrogenase 408 U/L (333-699) 05/08/17 10:50 Total Creatine Kinase 27 U/L (35-230) L 05/08/17 10:50 Troponin I 0.01 ng/mL D 05/08/17 10:50 NT-Pro-B Natriuret Pep 967 pg/mL (0-450) H 05/08/17 10:50 Total Protein 6.2 g/dL (5.8-8.3) 05/11/17 05:40 Albumin 3.2 g/dL (3.0-4.8) 05/11/17 05:40 Globulin 3.0 gm/dL 05/11/17 05:40 Albumin/Globulin Ratio 1.1 (1.1-1.8) 05/11/17 05:40 Procalcitonin < 0.05 NG/ML (0.19-0.49) L 05/08/17 10:50 Arterial Blood Potassium 4.0 mmol/L (3.6-5.2) 05/08/17 10:45 Venous Blood Potassium 4.2 mmol/L (3.6-5.2) 05/09/17 01:05 Urine Color Light yellow (YELLOW) 05/08/17 16:10 Urine Appearance Clear (CLEAR) 05/08/17 16:10 Urine pH 6.0 (4.7-8.0) 05/08/17 16:10 Ur Specific [place]um 1.015 (1.005-1.035) 05/08/17 16:10 Urine Protein Negative mg/dL (<30 mg/dL) 05/08/17 16:10 Urine Glucose (UA) 500 mg/dL (NEGATIVE) H 05/08/17 16:10 Urine Ketones Negative mg/dL (NEGATIVE) 05/08/17 16:10 Urine Blood Negative (NEGATIVE) 05/08/17 16:10 Urine Nitrate Negative (NEGATIVE) 05/08/17 16:10 Urine Bilirubin Negative (NEGATIVE) 05/08/17 16:10 Urine Urobilinogen 0.2 E.U./dL (<1 E.U./dL) 05/08/17 16:10 Ur Leukocyte Esterase Negative [place]/uL (NEGATIVE) 05/08/17 16:10 Influenza Typ A,B (EIA) Negative for flu a/b (NEGATIVE) 05/08/17 10:50 Discharge Exam - Head Exam Head Exam: ATRAUMATIC, NORMOCEPHALIC Discharge Plan - Discharge Medications Prescriptions: levoFLOXacin [Levaquin] 750 mg PO DAILY 2 Days tab Prednisone [Deltasone] 20 mg PO DAILY 3 Days tablet Prednisone 10 mg PO DAILY 3 Days tab.ds.pk Prednisone 40 mg PO DAILY #2 tablet Prednisone [Dez] 5 mg PO DAILY 2 Days tablet. - Follow Up Plan Condition: SERIOUS Disposition: HOME/ ROUTINE Instructions: Type 2 Diabetes, Heart Healthy Diet, Pneumonia, Adult (DC), Asthma (DC), Sepsis (ED) Additional Instructions: - Take prednisone 40 mg for 2 days->then 20 mg for 3 days -> then 10 mg for 3 days ->5 mg for 2 days. - Take Levaquin for 2 days. - Continue with home meds. - Return to ER if any concerns.
== END 2017-05-12 14:04 | disposition home or self-care (01) | DRG 190 ==
LOC: ED 09:57 → ERH 14:07 → 2RNO 17:41
PROVIDERS: ADMIT Hospitalist; ATTEND Internal Medicine
DX: J44.1 Chronic obstructive pulmonary disease with (acute) exacerbation (principal); J18.9 Pneumonia, unspecified organism; E11.65 Type 2 diabetes mellitus with hyperglycemia; I48.0 Paroxysmal atrial fibrillation; J45.901 Unspecified asthma with (acute) exacerbation; J44.0 Chronic obstructive pulmonary disease with (acute) lower respiratory infection; I25.10 Atherosclerotic heart disease of native coronary artery without angina pectoris; I10 Essential (primary) hypertension; T38.0X5A Adverse effect of glucocorticoids and synthetic analogues, initial encounter; E78.5 Hyperlipidemia, unspecified; I25.2 Old myocardial infarction; Z79.4 Long term (current) use of insulin; Z95.5 Presence of coronary angioplasty implant and graft; Z88.6 Allergy status to analgesic agent

== ENCOUNTER 2018-05-22 08:36 | Outpatient (CLI) | payer SELFPAY | END 2018-05-22 08:37 | disposition home or self-care (01) | LOC: LAB 08:36 ==

== ENCOUNTER 2018-06-02 09:33 | Outpatient (CLI) | payer SELFPAY | END 2018-06-02 09:34 | disposition home or self-care (01) | LOC: LAB 09:33 ==

== ENCOUNTER 2018-06-12 08:38 | Outpatient (CLI) | payer SELFPAY | END 2018-06-12 08:39 | disposition home or self-care (01) | LOC: RAD 08:38 ==